=== PATIENT | female | born 1960 | race Caucasian/White ===

== ENCOUNTER → 2016-07-13 | Outpatient (CLI) | payer OTHER | END | disposition home or self-care (01) | LOC: RAD 15:32 | PROVIDERS: ATTEND Nurse Practitioner | DX: S52.572A Other intraarticular fracture of lower end of left radius, initial encounter for closed fracture (principal); X58.XXXA Exposure to other specified factors, initial encounter; Y93.89 Activity, other specified; Y92.89 Other specified places as the place of occurrence of the external cause; Y99.8 Other external cause status ==

== ENCOUNTER 2016-07-16 10:48 | Emergency (ER) | payer OTHER ==
[~2016-07-16] VITALS: Ht 165.1 cm; Wt 56.3 kg
[2016-07-16 11:02] VITALS: BP 137/87
== END 2016-07-16 12:05 | disposition home or self-care (01) ==
LOC: ED 11:59
DX: S52.571A Other intraarticular fracture of lower end of right radius, initial encounter for closed fracture (principal); V00.131A Fall from skateboard, initial encounter; Y93.51 Activity, roller skating (inline) and skateboarding; Y92.89 Other specified places as the place of occurrence of the external cause; Y99.0 Civilian activity done for income or pay
CPT/HCPCS: 29125; 99283